=== PATIENT | female | born 1985 | race Caucasian/White ===

== ENCOUNTER 2025-08-08 17:07 | Inpatient (IN) | payer BC ==
[2025-08-08] MEDS: Sodium Chloride 0.9% 10 ML Syringe FLUSH ONE (18:19)
[2025-08-08] MEDS: Iopamidol 612 MG/ML 100 ML Bottle IVPUSH ONE (18:54)
[2025-08-08] MEDS: Sodium Chloride 0.9% 10 ML Syringe FLUSH PRN (18:55)
[2025-08-08 19:19] LABS: BASOPHILS ABSOLUTE AUTO 0.0 K/mm3 (0.0-0.2); BASOPHILS PERCENT AUTO 0.3 % (0.0-1.0); EOSINOPHILS ABSOLUTE AUTO 0.0 K/mm3 (0.0-0.4); EOSINOPHILS PERCENT AUTO 0.2 % (0.0-6.0); IMMATURE GRAN ABSOLUTE AUTO 0.03 K/mm3 (0.00-0.05); IMMATURE GRAN PERCENT AUTO 0.3 % (0.0-0.4); LYMPHOCYTES ABSOLUTE AUTO 0.7 K/mm3 (1.0-4.8); LYMPHOCYTES PERCENT AUTO 6.5 % (24.0-44.0); MEAN PLATELET VOLUME 8.8 fl (9.4-12.3); MONOCYTES ABSOLUTE AUTO 0.4 K/mm3 (0.0-0.8); MONOCYTES PERCENT AUTO 3.6 % (0.0-8.0); NEUTROPHILS ABSOLUTE AUTO 9.8 K/mm3 (1.8-7.7); NEUTROPHILS PERCENT AUTO 89.1 % (41.0-71.0); NRBC ABSOLUTE 0.00 (0.00-0.02); NRBC PERCENT 0.0 % (0.0-0.2); PLATELET COUNT,PLT 270 K/mm3 (150-400); RED BLOOD CELL COUNT 4.08 M/mm3 (4.10-5.30); WHITE BLOOD CELL COUNT,WBC 10.93 K/mm3 (3.9-11.3)
[2025-08-08 19:27] LABS: A/G RATIO 1.4 (1-2); ALANINE AMINOTRANSFERASE,ALT 20.0 U/L (14-59); ASPARTATE AMNIOTRANSFERASE,AST 18.0 U/L (15-37); BILIRUBIN TOTAL 0.8 mg/dL (0.2-1.0); BLOOD UREA NITROGEN,BUN 16.0 mg/dL (7-18); CARBON DIOXIDE,CO2 28.0 mEq/L (21-32); CHLORIDE,CL 102.0 mEq/L (98-107); CREATININE 0.7 mg/dL (0.55-1.02); EST CRCL DRUG DOSING (CG) 101.01 mL/min; ESTIMATED GFR 113.0 mL/min (>60); GLUCOSE RANDOM 110.0 mg/dL (70-99); POTASSIUM,K 3.5 mEq/L (3.5-5.1); PROTEIN TOTAL,TP 7.8 g/dl (6.4-8.2); SODIUM,NA 140.0 mEq/L (136-145)
[2025-08-08 21:53] LABS: APPEARANCE,URINE CLEAR (Clear); GLUCOSE,URINE NEGATIVE (Negative); OCCULT BLOOD,URINE NEGATIVE (Negative)
[2025-08-08] MEDS ORDERED: Ondansetron 4 MG/2 ML SDV IV PRN (22:16)
[2025-08-09] MEDS: Lactated Ringers 1,000 ML IV SCH (00:27)
[2025-08-09] MEDS: Ketorolac 15 MG/ML SDV IVPUSH PRN (01:50)
[2025-08-09] MEDS: Benzocaine 20% Oral Spray 59.2 ML Canister MUCMEM ONE (11:48)
[2025-08-09] MEDS: Benzocaine 20% Topical Spray UD MUCMEM ONE (11:48)
== END 2025-08-09 13:47 | disposition home or self-care (01) | DRG 254 ==
LOC: JD.ED 17:07 → JD.MS 22:16
PROVIDERS: ADMIT Surgery; ATTEND Surgery
PROC: 0D9670Z Drainage of Stomach with Drainage Device, Via Natural or Artificial Opening (ICD-10-PCS; principal; 2025-08-08)
DX: K59.01 Slow transit constipation (principal); F17.200 Nicotine dependence, unspecified, uncomplicated
CPT/HCPCS: 36415; 71045; 71045-26; 74018; 74018-26; 74176; 74176-26; 74177; 74177-26; 80053; 81003; 83690; 85025; 86140; 96361; 96374; 99285; 99285-25; J1171; J1885; J7030; J7120; Q9967